=== PATIENT | male | born 1995 | race Caucasian/White ===

== ENCOUNTER 2019-03-15 15:48 | Inpatient (IN) | payer OTHER, SELFPAY ==
[~2019-03-15] VITALS: Ht 175.3 cm; Wt 67.2 kg
[2019-03-15 16:26] LABS: BASOPHILS # (AUTO) 0.07 x10^3/uL (0-0.1); BASOPHILS % (AUTO) 1 % (0-1); EOSINOPHILS # (AUTO) 0.01 x10^3/uL (0-0.4); EOSINOPHILS % (AUTO) 0 % (1-7); LYMPHOCYTES # (AUTO) 1.75 x10^3/uL (1-3.4); LYMPHOCYTES % (AUTO) 18 % (22-44); MD NO; MEAN CORPUSCULAR HEMOGLOBIN 31.1 pg (27.5-34.5); MEAN CORPUSCULAR HGB CONC 34.3 g/dL (33.2-36.2); MEAN CORPUSCULAR VOLUME 90.5 fL (81-97); MEAN PLATELET VOLUME 8.3 fL (7.4-10.4); MONOCYTES # (AUTO) 0.73 x10^3/uL (0.2-0.8); MONOCYTES % (AUTO) 7 % (2-9); NEUTROPHILS # (AUTO) 7.34 x10^3/uL (1.8-6.8); NEUTROPHILS % (AUTO) 74 % (42-75); PLATELET COUNT 314 x10^3/uL (130-400); RED BLOOD COUNT 5.32 x10^6/uL (4.38-5.82); RED CELL DISTRIBUTION WIDTH 12.8 % (9.4-14.8)
[2019-03-15] MEDS ORDERED: MORPHINE SULFATE 4 MG/ML, 1ML ONE (16:26)
[2019-03-15] MEDS ORDERED: LORazepam 2 MG/ML, 1ML ONE (16:26)
[2019-03-15] MEDS: MORPHINE SULFATE 4 MG/ML, 1ML IVPush PRN ×2 (16:31→19:45)
[2019-03-15 16:36] LABS: ALBUMIN 4.3 g/dL (3.4-5.0); ANION GAP 7 mmol/L (5-15); CALCIUM 9.4 mg/dL (8.5-10.1); CHLORIDE 106 mmol/L (98-107)
--- NOTE | 2019-03-15 16:36 | NUR ---
PT IN HOSPITAL GOWN, ON CARDIAC AND VITALS MONITORS. LAW ENFORCEMENT AT BEDSIDE. PT MEDICATED PER EMAR. ORDERED FLUIDS INFUSING. WILL CONTINUE TO MONITOR.
[2019-03-15 16:42] LABS: ALANINE AMINOTRANSFERASE 53 U/L (12-78); ALKALINE PHOSPHATASE 110 U/L (45-117); BILIRUBIN,TOTAL 0.8 mg/dL (0.2-1.0); CREATININE 1.03 mg/dL (0.7-1.3); TOTAL PROTEIN 8.1 g/dL (6.4-8.2)
[2019-03-15 16:47] LABS: SALICYLATE LEVEL < 1.7 mg/dL (2.8-20.0)
[2019-03-15] MEDS ORDERED: SODIUM CHLORIDE FLUSH 10ML SYR IVF ONE (17:00)
[2019-03-15] MEDS ORDERED: SODIUM CHLORIDE 0.9% 1,000 ML IV ONE (17:00)
[2019-03-15] MEDS ORDERED: LORazepam 2 MG/ML, 1ML IVPush ONE (17:00)
[2019-03-15] MEDS ORDERED: METOPROLOL 1 MG/ML, 5ML ONE (17:17)
[2019-03-15] MEDS ORDERED: METOPROLOL 1 MG/ML, 5ML IVPush ONE (17:30)
--- NOTE | 2019-03-15 17:47 | NUR ---
Issac RN: BP meds admin per apr. Attempted to get a urine;unsuccessful.
--- NOTE | 2019-03-15 18:15 | NUR ---
REPORT TO DALJ[facility] MEDINA. DALJIT STATED ROOM ROOM IS STILL BEING CLEANED. THROUGHPUT AWARE.
[2019-03-15] MEDS: SODIUM CHLORIDE 0.9% 1,000 ML IV SCH (18:17)
[2019-03-15] MEDS ORDERED: OXYcodone IR 5MG TABLET PO PRN (18:30)
[2019-03-15] MEDS ORDERED: PROMETHAZINE 25 MG/ML, 1ML IM PRN (18:30)
[2019-03-15] MEDS ORDERED: ONDANSETRON ODT 4 MG PO PRN (18:30)
[2019-03-15] MEDS ORDERED: hydrALAzine 20 MG/ML, 1ML IVPush PRN (18:30)
[2019-03-15] MEDS ORDERED: POLYETHYLENE GLYCOL 17 GM PACKET PO PRN (18:30)
[2019-03-15] MEDS ORDERED: DOCUSATE 100 MG CAPSULE PO PRN (18:30)
[2019-03-15] MEDS ORDERED: ACETAMINOPHEN 325 MG TABLET PO PRN (18:30)
[2019-03-15] MEDS ORDERED: ONDANSETRON 2MG/ML, 2ML IVPush PRN (18:30)
[2019-03-15] MEDS ORDERED: morphine SULFATE 10 MG/ML, 1ML IVPush PRN (18:30)
[2019-03-15] MEDS ORDERED: BISACODYL 10 MG SUPP PR PRN (18:30)
[2019-03-15 18:31] LABS: CREATINE KINASE, TOTAL 248 U/L (39-308); TROPONIN I < 0.015 ng/mL (0.000-0.045)
[2019-03-15 18:52] VITALS: BP 103/56
[2019-03-15 19:23] LABS: FREE T4 (FREE THYROXINE) 1.36 ng/dL (0.76-1.46)
[2019-03-15 19:32] VITALS: BP 135/75
[2019-03-15] MEDS: LORazepam 2 MG/ML, 1ML IVPush SCH ×2 (19:37→21:00)
[2019-03-15] MEDS: LORazepam 2 MG/ML, 1ML IVPush PRN (20:31)
[2019-03-16 00:22] VITALS: BP 150/91
[2019-03-16 02:37] LABS: MICROSCOPIC NOT IND
[2019-03-16 02:41] LABS: CULTURE INDICATED? NO
[2019-03-16 02:50] LABS: AMPHETAMINE SCREEN, URINE Positive (Negative); BARBITURATE SCREEN, URINE Negative (Negative); BENZODIAZEPINE SCREEN, URINE Negative (Negative); CANNABINOID SCREEN, URINE Positive (Negative); COCAINE SCREEN, URINE Negative (Negative); METHADONE SCREEN, URINE Negative (Negative); OPIATE SCREEN, URINE Positive (Negative)
[2019-03-16] MEDS: SODIUM CHLORIDE 0.9% 1,000 ML IV SCH ×2 (02:52→11:02)
[2019-03-16] MEDS: LORazepam 2 MG/ML, 1ML IVPush PRN ×2 (04:40→09:17)
[2019-03-16 05:44] LABS: BASOPHILS # (AUTO) 0.04 x10^3/uL (0-0.1); BASOPHILS % (AUTO) 1 % (0-1); EOSINOPHILS # (AUTO) 0.05 x10^3/uL (0-0.4); EOSINOPHILS % (AUTO) 1 % (1-7); LYMPHOCYTES # (AUTO) 2.06 x10^3/uL (1-3.4); LYMPHOCYTES % (AUTO) 26 % (22-44); MD NO; MEAN CORPUSCULAR HEMOGLOBIN 31.1 pg (27.5-34.5); MEAN CORPUSCULAR HGB CONC 34.1 g/dL (33.2-36.2); MONOCYTES # (AUTO) 0.65 x10^3/uL (0.2-0.8); MONOCYTES % (AUTO) 8 % (2-9); NEUTROPHILS # (AUTO) 5.11 x10^3/uL (1.8-6.8); NEUTROPHILS % (AUTO) 65 % (42-75); PLATELET COUNT 262 x10^3/uL (130-400); RED CELL DISTRIBUTION WIDTH 12.5 % (9.4-14.8)
[2019-03-16 05:45] LABS: ALANINE AMINOTRANSFERASE 41 U/L (12-78); ALBUMIN 3.7 g/dL (3.4-5.0); ANION GAP 7 mmol/L (5-15); CALCIUM 8.7 mg/dL (8.5-10.1); CHLORIDE 107 mmol/L (98-107); CREATININE 1.05 mg/dL (0.7-1.3)
[2019-03-16 05:47] LABS: ALKALINE PHOSPHATASE 98 U/L (45-117); BILIRUBIN,TOTAL 0.9 mg/dL (0.2-1.0); TOTAL PROTEIN 7.1 g/dL (6.4-8.2)
[2019-03-16] MEDS: LORazepam 2 MG/ML, 1ML IVPush SCH ×3 (07:50→21:31)
[2019-03-16 08:41] VITALS: BP 138/86
[2019-03-16] MEDS ORDERED: METOPROLOL TARTRATE 25 MG TABLET PO SCH (10:30)
[2019-03-16] MEDS ORDERED: LABETALOL 5 MG/ML SYR. (IV ONLY) IVPush PRN (12:00)
[2019-03-16] MEDS: QUETIAPINE 25MG TABLET PO SCH ×2 (12:20→19:58)
[2019-03-16 12:43] VITALS: BP 135/90
[2019-03-16 19:23] VITALS: BP 110/66
[2019-03-16] MEDS: LABETALOL 200 MG TABLET PO SCH (19:59)
[2019-03-17 00:09] VITALS: BP 112/71
[2019-03-17 08:32] VITALS: BP 116/51
[2019-03-17] MEDS: QUETIAPINE 25MG TABLET PO SCH (08:38)
[2019-03-17] MEDS: LORazepam 2 MG/ML, 1ML IVPush SCH (08:38)
[2019-03-17] MEDS: LABETALOL 200 MG TABLET PO SCH (08:38)
[2019-03-17 10:38] LABS: TROPONIN I 0.025 ng/mL (0.000-0.045)
[2019-03-17 10:46] LABS: TROPONIN I < 0.015 ng/mL (0.000-0.045)
[2019-03-17] MEDS ORDERED: LABE200T6 PO (13:43)
[2019-03-17] MEDS ORDERED: QUET25TA5 PO (13:44)
[2019-03-17 14:45] VITALS: BP 109/67
== END 2019-03-17 17:18 | disposition home or self-care (01) | DRG 918 ==
LOC: ED 16:43 → EDIP 17:12 → 5SO 18:43
PROVIDERS: ADMIT Internal Medicine; ATTEND Hospitalist
DX: T43.621A Poisoning by amphetamines, accidental (unintentional), initial encounter (principal); F14.10 Cocaine abuse, uncomplicated; F15.10 Other stimulant abuse, uncomplicated; F17.210 Nicotine dependence, cigarettes, uncomplicated; F41.9 Anxiety disorder, unspecified; I10 Essential (primary) hypertension; Y92.098 Other place in other non-institutional residence as the place of occurrence of the external cause
CPT/HCPCS: 36415; 71045; 80053; 80307; 81003; 82550; 83036; 83735; 83880; 84439; 84443; 84484; 85025; 93005; 96374; G0378; J2060; J2270; J7030